=== PATIENT | female | born 2000 | race Caucasian/White ===

== ENCOUNTER → 2023-12-04 | Outpatient (CLI) | payer OTHER | LOC: M SLEEP 20:00 | PROVIDERS: ATTEND Nurse Practitioner Adult Health | DX: G47.8 Other sleep disorders (principal) ==

== ENCOUNTER 2023-12-17 02:47 | Emergency (ER) | payer OTHER ==
[~2023-12-17] VITALS: Ht 162.6 cm; Wt 84.3 kg
[2023-12-17 03:17] LABS: BASO % 0.1 % (0.0-1.0); EOS # 0.2 10^3/uL (0.0-0.5); EOS % 2.4 % (0.0-3.0); HEMATOCRIT 37.3 % (36.0-47.0); HEMOGLOBIN 12.9 g/dl (12.0-15.5); LYMPH # 2.3 10^3/uL (1.5-5.0); LYMPH % 26.7 % (24.0-44.0); MEAN CORPUSCULAR HEMOGLOBIN 27.4 pg (27.0-33.0); MEAN CORPUSCULAR HGB CONC 34.6 g/dl (32.0-36.5); MEAN CORPUSCULAR VOLUME 79.2 fl (80.0-96.0); MONO # 0.6 10^3/uL (0.0-0.8); MONO % 7.3 % (2.0-8.0); NEUTROPHILS # 5.5 10^3/uL (1.5-8.5); PLATELET COUNT, AUTOMATED 301 10^3/uL (150-450); RED BLOOD COUNT 4.71 10^6/uL (4.00-5.40); WHITE BLOOD COUNT 8.7 10^3/uL (4.0-10.0)
[2023-12-17 03:22] LABS: APPEARANCE, URINE MANUAL CLEAR (CLEAR); COLOR, URINE MANUAL YELLOW (YELLOW)
[2023-12-17 03:23] LABS: BILIRUBIN, URINE MANUAL NEGATIVE (NEGATIVE); BLOOD URINE MANUAL POSITIVE (NEGATIVE); GLUCOSE, URINE (UA) MANUAL NEGATIVE (NEGATIVE); KETONE, URINE MANUAL NEGATIVE (NEGATIVE); LEUKOCYTE ESTERASE, URINE MAN POSITIVE (NEGATIVE); NITRITE, URINE MANUAL NEGATIVE (NEGATIVE); PROTEIN, URINE MANUAL NEGATIVE (NEGATIVE); SPECIFIC GRAVITY,URINE MANUAL 1.025 (1.002-1.035); UROBILINOGEN, URINE MANUAL NORMAL (NORMAL)
[2023-12-17 03:38] LABS: BLOOD UREA NITROGEN 11 MG/DL (9-23); CALCIUM LEVEL 8.6 MG/DL (8.5-10.1); CARBON DIOXIDE LEVEL 21 MMOL/L (20-31); CHLORIDE LEVEL 110 MMOL/L (98-107); CREATININE FOR GFR 0.57 MG/DL (0.55-1.30); GLOMERULAR FILTRATION RATE > 60.0 (>60); GLUCOSE, FASTING 85 MG/DL (60-100); POTASSIUM SERUM 3.8 MMOL/L (3.5-5.1); SODIUM LEVEL 138 MMOL/L (136-145)
[2023-12-17 03:42] LABS: SQUAMOUS EPITHELIAL CELL URINE LARGE AMOUNT /hpf (SMALL AMT)
[2023-12-17 03:43] LABS: BACTERIA, URINE LARGE AMOUNT; HYALINE CAST, URINE NONE SEEN /lpf (0-1)
[2023-12-17 04:26] LABS: HCG, SERUM QUANTITATIVE 96939.1 MIU/ML (<4.2)
[2023-12-17] MEDS ORDERED: NITR-67 PO (07:03)
[2023-12-17 07:47] VITALS: BP 129/64; TEMP 98; O2SAT 99
== END 2023-12-17 08:06 | disposition home or self-care (01) ==
LOC: M ED 02:47
DX: O44.02 Complete placenta previa NOS or without hemorrhage, second trimester (principal); O23.42 Unspecified infection of urinary tract in pregnancy, second trimester; O26.852 Spotting complicating pregnancy, second trimester; Z3A.13 13 weeks gestation of pregnancy; Z79.899 Other long term (current) drug therapy

== ENCOUNTER → 2024-04-23 | Outpatient (CLI) | payer OTHER ==
[~2024-04-23] MED LIST: NITR-67 PO
== END ==
LOC: M WHC 13:08
PROVIDERS: ATTEND Advanced Practice Midwife
DX: O30.033 Twin pregnancy, monochorionic/diamniotic, third trimester (principal); Z3A.32 32 weeks gestation of pregnancy

== ENCOUNTER → 2024-04-30 | Outpatient (CLI) | payer OTHER | LOC: M WHC 15:36 | PROVIDERS: ATTEND Advanced Practice Midwife | DX: O30.033 Twin pregnancy, monochorionic/diamniotic, third trimester (principal); Z3A.33 33 weeks gestation of pregnancy ==

== ENCOUNTER → 2024-04-30 | Outpatient (CLI) | payer OTHER ==
[~2024-04-30] MED LIST changes: +BAYE81TA10 PO; +FOLI1TAB11 PO; +MULTTAB20 PO
== END ==
LOC: M WHC 15:06
PROVIDERS: ATTEND Advanced Practice Midwife
DX: O30.033 Twin pregnancy, monochorionic/diamniotic, third trimester (principal); Z3A.33 33 weeks gestation of pregnancy

== ENCOUNTER → 2024-05-07 | Outpatient (CLI) | payer OTHER ==
[~2024-05-07] MED LIST changes: -BAYE81TA10 PO; -FOLI1TAB11 PO; -MULTTAB20 PO
== END ==
LOC: M RAD 10:44
PROVIDERS: ATTEND Advanced Practice Midwife
DX: O30.033 Twin pregnancy, monochorionic/diamniotic, third trimester (principal); Z3A.34 34 weeks gestation of pregnancy

== ENCOUNTER → 2024-05-14 | Outpatient (CLI) | payer OTHER ==
[~2024-05-14] MED LIST changes: +BAYE81TA10 PO; +FOLI1TAB11 PO; +MULTTAB20 PO
== END ==
LOC: M WHC 12:59
PROVIDERS: ATTEND Advanced Practice Midwife
DX: O30.033 Twin pregnancy, monochorionic/diamniotic, third trimester (principal); Z3A.35 35 weeks gestation of pregnancy

== ENCOUNTER → 2024-05-17 | Outpatient (REF) | payer OTHER | LOC: M SFHCWAGY 12:25 | PROVIDERS: ATTEND Obstetrics & Gynecology | DX: Z36.85 Encounter for antenatal screening for Streptococcus B (principal); Z3A.36 36 weeks gestation of pregnancy ==

== ENCOUNTER → 2024-05-18 | Outpatient (CLI) | payer OTHER | LOC: M RAD 15:07 | PROVIDERS: ATTEND Advanced Practice Midwife | DX: O30.033 Twin pregnancy, monochorionic/diamniotic, third trimester (principal) ==

== ENCOUNTER 2024-05-28 05:25 | Inpatient (IN) | payer OTHER ==
[~2024-05-28] VITALS: Ht 162.6 cm; Wt 104.0 kg
[2024-05-28] VITALS (8 sets, daily range): BP systolic 125–141; BP diastolic 59–76; TEMP 96.9; O2SAT 97–100
[2024-05-28] MEDS ORDERED: HOME MED LIST COMPLETE! XX SCH (06:00)
[2024-05-28 06:40] LABS: HEMATOCRIT 32.2 % (36.0-47.0); HEMOGLOBIN 10.3 g/dl (12.0-15.5); MEAN CORPUSCULAR HEMOGLOBIN 23.3 pg (27.0-33.0); MEAN CORPUSCULAR VOLUME 72.7 fl (80.0-96.0); PLATELET COUNT, AUTOMATED 221 10^3/uL (150-450); RED BLOOD COUNT 4.43 10^6/uL (4.00-5.40); WHITE BLOOD COUNT 7.7 10^3/uL (4.0-10.0)
[2024-05-28] MEDS: ceFAZolin SOD 2 GM in IV 1 EA IV ONE (07:25)
[2024-05-28] MEDS: BICITRA 30ML SOLN UDC PO ONE (07:25)
[2024-05-28] MEDS: LR 1,000 ML IV SCH (07:26)
[2024-05-28] MEDS: LACTATED RINGER'S 1000 ML IV STA (07:26)
[2024-05-28] MEDS ORDERED: OXYTOCIN 30UNITS IN 0.9% NaCl 500ML IV BAG As Ordered ONE (07:30)
[2024-05-28] MEDS ORDERED: ONDANSETRON 4MG 2ML VIAL As Ordered ONE (07:30)
[2024-05-28] MEDS ORDERED: MORPHINE PRES-FREE INJ 10 MG/10 ML VIAL As Ordered ONE (07:30)
[2024-05-28] MEDS ORDERED: ACETAMINOPHEN 1000MG/100ML IV BAG As Ordered ONE (07:30)
[2024-05-28] MEDS ORDERED: KETOROLAC 60MG 2ML VIAL As Ordered ONE (07:32)
[2024-05-28 07:38] LABS: HEPATITIS C VIRUS ABY INDEX 0.02 INDEX (<0.8)
[2024-05-28] MEDS ORDERED: MOM 30ML SUSPENSION UDC PO PRN (07:45)
[2024-05-28] MEDS ORDERED: PERCOCET 5MG/325MG TAB PO PRN (07:45)
[2024-05-28] MEDS ORDERED: ONDANSETRON 4MG 2ML VIAL IV PRN ×2 (07:45→08:55)
[2024-05-28] MEDS ORDERED: LR 1,000 ML IV SCH (07:45)
[2024-05-28] MEDS ORDERED: RHOGAM 300MCG (1500IU) INJ IM SCH (07:45)
[2024-05-28] MEDS ORDERED: SIMETHICONE 80MG CHEW TAB PO PRN (07:45)
[2024-05-28] MEDS ORDERED: CALCIUM CARBONATE 500 MG CHEW U/D PO PRN (07:45)
[2024-05-28] MEDS ORDERED: METHYLERGONOVINE MALEATE 0.2 MG TAB PO PRN (07:45)
[2024-05-28] MEDS ORDERED: PHENYLephrine 500MCG 5ML (100MCG/ML) SYRINGE As Ordered ONE (08:32)
[2024-05-28] MEDS ORDERED: ePHEDrine SULFATE 25 MG/5 ML(5MG/ML) SYRINGE As Ordered ONE (08:32)
[2024-05-28] MEDS: OXYTOCIN DRIP 30 UNITS in IV 1 EA IV SCH (08:53)
[2024-05-28] MEDS ORDERED: fentaNYL 100 MCG/2 ML INJECTION IV PRN (08:55)
[2024-05-28] MEDS ORDERED: NALOXONE INJ 0.4MG/1ML VIAL IV PRN ×2 (08:55)
[2024-05-28] MEDS ORDERED: NS (Normal Saline) 0.9% 1,000 ML IV SCH (08:55)
[2024-05-28] MEDS: SLF 3 ML SYR IV SCH (08:55)
[2024-05-28] MEDS ORDERED: **NOTE PATIENT COMMENT** MISC XX SCH (08:55)
[2024-05-28] MEDS ORDERED: diphenhydrAMINE 50MG/ML VIAL IV PRN (08:55)
[2024-05-28] MEDS ORDERED: METOCLOPRAMIDE INJ 10MG/2ML VIAL IV PRN (08:55)
[2024-05-28] MEDS: PRENATAL VITAMINS CHEWABLE TABLET PO SCH (09:00)
[2024-05-28] MEDS: DOCUSATE SODIUM 100MG CAPSULE PO SCH (09:00)
[2024-05-28] MEDS: FERROUS SULFATE 325MG TAB PO SCH (09:00)
[2024-05-28] MEDS ORDERED: oxyCODONE 5MG TAB As Ordered ONE (10:36)
[2024-05-28] MEDS: oxyCODONE 5MG TAB PO PRN (10:38)
[2024-05-28] MEDS: KETOROLAC 30 MG/ML 1ML VIAL IV SCH (16:11)
[2024-05-29 02:00] VITALS: BP 130/62; O2SAT 98
[2024-05-29 06:00] VITALS: BP 119/62; O2SAT 100
[2024-05-29 07:19] LABS: HEMATOCRIT 26.3 % (36.0-47.0); MEAN CORPUSCULAR HEMOGLOBIN 23.4 pg (27.0-33.0); MEAN CORPUSCULAR HGB CONC 31.6 g/dl (32.0-36.5); MEAN CORPUSCULAR VOLUME 74.1 fl (80.0-96.0); PLATELET COUNT, AUTOMATED 200 10^3/uL (150-450); RED BLOOD COUNT 3.55 10^6/uL (4.00-5.40); WHITE BLOOD COUNT 8.9 10^3/uL (4.0-10.0)
[2024-05-29 07:23] LABS: HEMOGLOBIN 8.3 g/dl (12.0-15.5)
[2024-05-29] MEDS: IBUPROFEN 800 MG TAB PO SCH (09:31)
[2024-05-29] MEDS: PERCOCET 5MG/325MG TAB PO PRN (09:32)
[2024-05-29 10:00] VITALS: BP 129/67; O2SAT 100
[2024-05-29 14:00] VITALS: BP 122/62; O2SAT 100
[2024-05-29 18:00] VITALS: BP 140/77; O2SAT 99
[2024-05-29 22:00] VITALS: BP 131/79; O2SAT 100
[2024-05-30 02:00] VITALS: BP 120/76; O2SAT 100
[2024-05-30 05:46] VITALS: BP 140/65; O2SAT 100
[2024-05-30] MEDS ORDERED: MEASLES,MUMPS,RUBELLA VACCINE INJ (MMR-II) SC.IMMUN ONE (09:00)
[2024-05-30 10:00] VITALS: BP 131/66; O2SAT 99
== END 2024-05-30 14:00 | disposition home or self-care (01) | DRG 788 ==
LOC: M LDI 05:25 → M OBS 10:48
PROVIDERS: ADMIT Obstetrics & Gynecology; ATTEND Obstetrics & Gynecology
PROC: 10D00Z1 Extraction of Products of Conception, Low, Open Approach (ICD-10-PCS; principal; 2024-05-28 09:30)
DX: O30.033 Twin pregnancy, monochorionic/diamniotic, third trimester (principal); Z3A.37 37 weeks gestation of pregnancy; Z37.2 Twins, both liveborn

== ENCOUNTER → 2024-09-10 | Outpatient (REF) | payer OTHER | LOC: M PLALAB 11:21 | PROVIDERS: ATTEND Obstetrics & Gynecology | DX: Z12.4 Encounter for screening for malignant neoplasm of cervix (principal) ==

== ENCOUNTER → 2024-09-20 | Outpatient (CLI) | payer OTHER | LOC: M WHC 11:34 | PROVIDERS: ATTEND Obstetrics & Gynecology | DX: Z97.5 Presence of (intrauterine) contraceptive device (principal) ==